=== PATIENT | female | born 1955 | race Caucasian/White ===

== ENCOUNTER 2016-08-21 06:49 | Emergency (ER) | payer MEDICAID ==
[~2016-08-21] VITALS: Ht 162.6 cm; Wt 38.9 kg
[2016-08-21 06:58] VITALS: BP 122/82
[2016-08-21] MEDS ORDERED: BACITRACIN ZINC OINT 500U/GM, 0.9 GM ONE ×2 (07:56→08:25)
== END 2016-08-21 08:39 | disposition home or self-care (01) ==
LOC: ED 08:11
DX: S00.81XA Abrasion of other part of head, initial encounter (principal); F23 Brief psychotic disorder; F31.9 Bipolar disorder, unspecified; J44.9 Chronic obstructive pulmonary disease, unspecified; X58.XXXA Exposure to other specified factors, initial encounter; Y93.89 Activity, other specified; Y92.89 Other specified places as the place of occurrence of the external cause; Y99.8 Other external cause status
CPT/HCPCS: 99281

== ENCOUNTER 2016-08-27 07:54 | Emergency (ER) | payer MEDICAID ==
[~2016-08-27] VITALS: Ht 165.1 cm; Wt 38.1 kg
[2016-08-27 07:56] VITALS: BP 120/70
[2016-08-27] MEDS ORDERED: SODIUM CHLORIDE FLUSH 10ML SYR IVF ONE (09:00)
[2016-08-27] MEDS ORDERED: SODIUM CHLORIDE 0.9% 1,000ML IVBOLUS ONE (09:00)
== END 2016-08-27 09:27 | disposition home or self-care (01) ==
LOC: ED 08:19
DX: R21 Rash and other nonspecific skin eruption (principal); J44.9 Chronic obstructive pulmonary disease, unspecified
CPT/HCPCS: 99281

== ENCOUNTER 2016-09-06 07:11 | Emergency (ER) | payer MEDICAID ==
[~2016-09-06] VITALS: Ht 165.1 cm; Wt 38.8 kg
[2016-09-06 07:17] VITALS: BP 114/72
== END 2016-09-06 08:21 | disposition left against medical advice (07) ==
LOC: ED 08:15
DX: L98.8 Other specified disorders of the skin and subcutaneous tissue (principal)

== ENCOUNTER 2016-09-23 06:08 | Emergency (ER) | payer MEDICAID ==
[~2016-09-23] VITALS: Ht 162.6 cm; Wt 38.2 kg
[2016-09-23 07:51] VITALS: BP 125/77
== END 2016-09-23 07:53 | disposition home or self-care (01) ==
LOC: ED 07:25
DX: L57.0 Actinic keratosis (principal); G89.29 Other chronic pain; M41.9 Scoliosis, unspecified; M54.9 Dorsalgia, unspecified
CPT/HCPCS: 99281

== ENCOUNTER 2016-11-05 07:50 | Emergency (ER) | payer MEDICAID ==
[~2016-11-05] VITALS: Ht 152.4 cm; Wt 37.5 kg
[2016-11-05 08:04] VITALS: BP 121/79
== END 2016-11-05 09:46 | disposition left against medical advice (07) ==
LOC: ED 09:40
DX: Z53.21 Procedure and treatment not carried out due to patient leaving prior to being seen by health care provider (principal)

== ENCOUNTER 2017-02-02 19:37 | Emergency (ER) | payer MEDICAID ==
[~2017-02-02] VITALS: Ht 165.1 cm; Wt 40.1 kg
[2017-02-02 19:39] VITALS: BP 134/83
[2017-02-02] MEDS ORDERED: PRED20TA PO (20:12)
[2017-02-02] MEDS ORDERED: AZIT500T5 PO (20:12)
[2017-02-02] MEDS ORDERED: ALBU18HF INH (20:12)
== END 2017-02-02 20:26 | disposition home or self-care (01) ==
LOC: ED 20:15
DX: J20.9 Acute bronchitis, unspecified (principal); J44.9 Chronic obstructive pulmonary disease, unspecified; Z88.0 Allergy status to penicillin
CPT/HCPCS: 99283

== ENCOUNTER 2017-02-08 22:19 | Emergency (ER) | payer MEDICAID ==
[~2017-02-08] VITALS: Ht 152.4 cm; Wt 42.0 kg
[~2017-02-08 22:19] MED LIST: ALBU18HF INH; AZIT500T5 PO; PRED20TA PO
[2017-02-08 22:20] VITALS: BP 130/81
[2017-02-08] MEDS ORDERED: KETOROLAC 30 MG/1 ML IM ONE (23:30)
[2017-02-08] MEDS ORDERED: KETOROLAC 30 MG/1 ML ONE (23:40)
== END 2017-02-08 23:49 | disposition home or self-care (01) ==
LOC: ED 23:29
DX: M54.5 Low back pain (principal); M54.6 Pain in thoracic spine; J44.9 Chronic obstructive pulmonary disease, unspecified; G89.29 Other chronic pain; M54.9 Dorsalgia, unspecified
CPT/HCPCS: 71020; 99284

== ENCOUNTER 2017-02-09 17:44 | Emergency (ER) | payer MEDICAID ==
[~2017-02-09] VITALS: Ht 165.1 cm; Wt 41.0 kg
[2017-02-09] MEDS ORDERED: ACETAMINOPHEN 325 MG TABLET PO ONE (18:30)
[2017-02-09] MEDS ORDERED: PLEASE ENTER HEIGHT AND WEIGHT MC SCH (18:30)
[2017-02-09] MEDS ORDERED: ACETAMINOPHEN 325 MG TABLET ONE (18:35)
[2017-02-09 19:07] VITALS: BP 126/79
== END 2017-02-09 20:18 | disposition home or self-care (01) ==
LOC: ED 19:20
DX: J15.9 Unspecified bacterial pneumonia (principal); J44.0 Chronic obstructive pulmonary disease with (acute) lower respiratory infection
CPT/HCPCS: 71020; 93005; 99284

== ENCOUNTER 2017-02-10 05:01 | Emergency (ER) | payer MEDICAID ==
[~2017-02-10] VITALS: Ht 165.1 cm; Wt 40.0 kg
[2017-02-10] MEDS ORDERED: MECLIZINE CHEWABLE 25 MG TAB PO ONE (05:30)
[2017-02-10] MEDS ORDERED: MECLIZINE CHEWABLE 25 MG TAB ONE (05:55)
[2017-02-10 06:06] LABS: BLOOD UREA NITROGEN 9 mg/dL (7-18)
[2017-02-10 06:13] LABS: IS PT STATUS REG ER OR PRE ER? YES
[2017-02-10 06:19] LABS: HEMATOCRIT 44.6 % (34.6-47.8); HEMOGLOBIN 14.9 g/dL (11.7-16.4); WHITE BLOOD COUNT 16.2 x10^3/uL (3.4-10)
[2017-02-10 09:07] VITALS: BP 118/70
== END 2017-02-10 09:09 | disposition home or self-care (01) ==
LOC: ED 05:35
DX: R42 Dizziness and giddiness (principal); J44.9 Chronic obstructive pulmonary disease, unspecified; Z59.0 Homelessness; F17.200 Nicotine dependence, unspecified, uncomplicated; M41.9 Scoliosis, unspecified
CPT/HCPCS: 36415; 70450; 80048; 81003; 82040; 84484; 85025; 93005; 99285

== ENCOUNTER 2017-08-18 23:44 | Emergency (ER) | payer MEDICAID ==
[~2017-08-18] VITALS: Ht 165.1 cm; Wt 44.2 kg
[2017-08-18 23:49] VITALS: BP 142/87
[2017-08-19] MEDS ORDERED: METHOCARBAMOL 750 MG TABLET PO ONE (00:30)
[2017-08-19] MEDS ORDERED: KETOROLAC 30 MG/1 ML IM ONE (00:30)
[2017-08-19] MEDS ORDERED: METHOCARBAMOL 750 MG TABLET ONE (00:47)
[2017-08-19] MEDS ORDERED: KETOROLAC 30 MG/1 ML ONE (00:47)
== END 2017-08-19 02:14 | disposition home or self-care (01) ==
LOC: ED 23:59
DX: M41.116 Juvenile idiopathic scoliosis, lumbar region (principal); M41.114 Juvenile idiopathic scoliosis, thoracic region; R05 Cough; J44.9 Chronic obstructive pulmonary disease, unspecified; F17.200 Nicotine dependence, unspecified, uncomplicated; Z88.0 Allergy status to penicillin
CPT/HCPCS: 71046; 99284

== ENCOUNTER 2018-02-08 13:25 | Emergency (ER) | payer MEDICAID ==
[~2018-02-08] VITALS: Ht 157.5 cm; Wt 49.4 kg
[2018-02-08 13:25] VITALS: BP 115/72
== END 2018-02-08 14:24 | disposition home or self-care (01) ==
LOC: ED 14:17
DX: L84 Corns and callosities (principal); M54.9 Dorsalgia, unspecified; G89.29 Other chronic pain; F17.200 Nicotine dependence, unspecified, uncomplicated
CPT/HCPCS: 99281

== ENCOUNTER 2019-04-07 20:43 | Emergency (ER) | payer SELFPAY ==
[~2019-04-07] VITALS: Ht 165.1 cm; Wt 45.4 kg
[~2019-04-07 20:43] MED LIST changes: +AZIT500T10 PO; -AZIT500T5 PO
[2019-04-07 20:49] VITALS: BP 118/59
== END 2019-04-07 22:15 ==
LOC: ED 21:20
DX: B86 Scabies (principal); F17.210 Nicotine dependence, cigarettes, uncomplicated; Z72.9 Problem related to lifestyle, unspecified
CPT/HCPCS: 99283

== ENCOUNTER 2019-04-11 19:53 | Emergency (ER) | payer MEDICAID ==
[~2019-04-11] VITALS: Ht 165.1 cm; Wt 45.8 kg
[2019-04-11 19:59] VITALS: BP 125/86
== END 2019-04-11 21:52 | disposition home or self-care (01) ==
LOC: ED 21:46
DX: L24.9 Irritant contact dermatitis, unspecified cause (principal); B86 Scabies; J44.9 Chronic obstructive pulmonary disease, unspecified; F17.210 Nicotine dependence, cigarettes, uncomplicated
CPT/HCPCS: 99283

== ENCOUNTER → 2019-04-14 | Emergency (ER) | payer MEDICAID ==
[~2019-04-14] VITALS: Ht 165.1 cm; Wt 50.0 kg
[2019-04-14 21:22] VITALS: BP 172/96
== END ==
LOC: ED 21:50
DX: B86 Scabies (principal); J44.9 Chronic obstructive pulmonary disease, unspecified; F17.210 Nicotine dependence, cigarettes, uncomplicated
CPT/HCPCS: 99283

== ENCOUNTER 2019-05-17 14:30 | Emergency (ER) | payer MEDICAID ==
[~2019-05-17] VITALS: Ht 152.4 cm; Wt 45.2 kg
[2019-05-17 14:46] VITALS: BP 116/78
== END 2019-05-17 15:33 | disposition home or self-care (01) ==
LOC: ED 15:27
DX: S50.861A Insect bite (nonvenomous) of right forearm, initial encounter (principal); S60.862A Insect bite (nonvenomous) of left wrist, initial encounter; S60.861A Insect bite (nonvenomous) of right wrist, initial encounter; S60.562A Insect bite (nonvenomous) of left hand, initial encounter; S60.561A Insect bite (nonvenomous) of right hand, initial encounter; S50.862A Insect bite (nonvenomous) of left forearm, initial encounter; J44.9 Chronic obstructive pulmonary disease, unspecified; F17.200 Nicotine dependence, unspecified, uncomplicated; W57.XXXA Bitten or stung by nonvenomous insect and other nonvenomous arthropods, initial encounter; Y93.89 Activity, other specified; Y92.89 Other specified places as the place of occurrence of the external cause; Y99.8 Other external cause status
CPT/HCPCS: 99281

== ENCOUNTER 2019-05-29 19:40 | Emergency (ER) | payer MEDICAID ==
[~2019-05-29] VITALS: Ht 165.1 cm; Wt 45.0 kg
[2019-05-29 19:48] VITALS: BP 141/84
[2019-05-29] MEDS ORDERED: PERMETHRIN CRM 5%, 60GM ONE (19:55)
[2019-05-29] MEDS ORDERED: hydrOXyzine 50MG TABLET ONE (19:55)
[2019-05-29] MEDS ORDERED: PERMETHRIN CRM 5%, 60GM TP ONE (20:00)
[2019-05-29] MEDS ORDERED: hydrOXyzine 50MG TABLET PO ONE (20:00)
--- NOTE | 2019-05-29 20:03 | NUR ---
pt seen by pa and discharged from [facility]
== END 2019-05-29 20:05 | disposition home or self-care (01) ==
LOC: ED 19:52
DX: B86 Scabies (principal); W57.XXXA Bitten or stung by nonvenomous insect and other nonvenomous arthropods, initial encounter; J44.9 Chronic obstructive pulmonary disease, unspecified; F17.200 Nicotine dependence, unspecified, uncomplicated; Y93.89 Activity, other specified; Y92.89 Other specified places as the place of occurrence of the external cause; Y99.8 Other external cause status
CPT/HCPCS: 99283

== ENCOUNTER 2019-05-31 09:19 | Emergency (ER) | payer MEDICAID ==
[~2019-05-31] VITALS: Ht 157.5 cm; Wt 44.8 kg
[2019-05-31 09:27] VITALS: BP 134/74
--- NOTE | 2019-05-31 09:44 | NUR ---
Patient given discharge instructions and they have confirmed that they understand the instructions. Patient ambulatory with steady gait. Pt left with d/c paperwork, bus pass, and all personal belongings. NADN. No needs expressed.
== END 2019-05-31 09:59 | disposition home or self-care (01) ==
LOC: ED 09:26
DX: T14.8XXA Other injury of unspecified body region, initial encounter (principal); G89.29 Other chronic pain; J44.9 Chronic obstructive pulmonary disease, unspecified; W57.XXXA Bitten or stung by nonvenomous insect and other nonvenomous arthropods, initial encounter; Y93.89 Activity, other specified; Y92.009 Unspecified place in unspecified non-institutional (private) residence as the place of occurrence of the external cause; Y99.8 Other external cause status
CPT/HCPCS: 99283

== ENCOUNTER 2019-06-02 14:32 | Emergency (ER) | payer MEDICAID ==
[~2019-06-02] VITALS: Ht 165.1 cm; Wt 45.0 kg
[2019-06-02 14:35] VITALS: BP 124/78
--- NOTE | 2019-06-02 14:59 | NUR ---
PT D/C WITH D/C SUMMARY AND SCRIPTS. ALL QUESTIONS ANSWERED. PT AMBULATES WITH STEADY GAIT FOR D/C HOME. PT DENIES ANY OTHER NEEDS PERTAINING TO THIS VISIT AND PROVIDED BUS PAST PER PT REQUEST.
== END 2019-06-02 15:02 | disposition home or self-care (01) ==
LOC: ED 14:55
DX: B86 Scabies (principal); J44.9 Chronic obstructive pulmonary disease, unspecified; F17.210 Nicotine dependence, cigarettes, uncomplicated; Z72.9 Problem related to lifestyle, unspecified
CPT/HCPCS: 99282

== ENCOUNTER 2019-06-07 17:44 | Emergency (ER) | payer MEDICAID ==
[~2019-06-07] VITALS: Ht 165.1 cm; Wt 39.0 kg
[2019-06-07 17:54] VITALS: BP 110/68
== END 2019-06-07 19:45 | disposition home or self-care (01) ==
LOC: ED 18:47
DX: B86 Scabies (principal); L29.9 Pruritus, unspecified; J44.9 Chronic obstructive pulmonary disease, unspecified
CPT/HCPCS: 99283

== ENCOUNTER 2019-11-17 10:32 | Inpatient (IN) | payer MEDICAID ==
[~2019-11-17] VITALS: Ht 165.1 cm; Wt 37.0 kg
[2019-11-17] MEDS ORDERED: HYDROmorphone 1 MG/ML, 1ML INJ ONE ×2 (11:37→20:36)
[2019-11-17] MEDS ORDERED: SODIUM CHLORIDE FLUSH 10ML SYR IVF ONE (12:00)
[2019-11-17] MEDS ORDERED: HYDROmorphone 1 MG/ML, 1ML INJ IVPush PRN ×2 (12:00→20:00)
[2019-11-17 13:29] LABS: MEAN CORPUSCULAR HEMOGLOBIN 31.9 pg (27.0-34.8); MEAN CORPUSCULAR HGB CONC 32.7 g/dL (32.4-35.8); MEAN PLATELET VOLUME 7.3 fL (7.4-10.4); PLATELET COUNT 247 x10^3/uL (130-400); RED BLOOD COUNT 4.27 x10^6/uL (3.82-5.3); RED CELL DISTRIBUTION WIDTH 14.6 % (9.6-15.2)
[2019-11-17 13:39] LABS: ANION GAP 7 mmol/L (5-15); CALCIUM 8.9 mg/dL (8.5-10.1); CHLORIDE 109 mmol/L (98-107); CREATININE 0.71 mg/dL (0.55-1.02)
[2019-11-17 14:11] LABS: BASOPHILS # (AUTO) 0.02 x10^3/uL (0-0.1); BASOPHILS % (AUTO) 0 % (0-1); EOSINOPHILS # (AUTO) 0.09 x10^3/uL (0-0.4); EOSINOPHILS % (AUTO) 1 % (1-7); LYMPHOCYTES # (AUTO) 1.14 x10^3/uL (1-3.4); LYMPHOCYTES % (AUTO) 6 % (22-44); MD SCAN; MONOCYTES # (AUTO) 0.54 x10^3/uL (0.2-0.8); MONOCYTES % (AUTO) 3 % (2-9); NEUTROPHILS # (AUTO) 16.43 x10^3/uL (1.8-6.8); NEUTROPHILS % (AUTO) 90 % (42-75)
[2019-11-17] MEDS ORDERED: KETOROLAC 30 MG/1 ML IV PRN ×2 (14:30→19:18)
[2019-11-17] MEDS ORDERED: morphine SULFATE 10 MG/ML, 1ML IVPush PRN (14:30)
[2019-11-17] MEDS ORDERED: ACETAMINOPHEN 325 MG TABLET PO PRN ×2 (14:30→20:00)
[2019-11-17] MEDS ORDERED: POLYETHYLENE GLYCOL 17 GM PACKET PO PRN (14:30)
[2019-11-17] MEDS ORDERED: ONDANSETRON ODT 4 MG PO PRN (14:30)
[2019-11-17] MEDS ORDERED: ONDANSETRON 2MG/ML, 2ML IVPush PRN ×2 (14:30→20:00)
[2019-11-17] MEDS ORDERED: KETOROLAC 30 MG/1 ML ONE (15:42)
[2019-11-17] MEDS ORDERED: HALOPERIDOL 1 MG TABLET PO PRN (16:30)
[2019-11-17] MEDS ORDERED: LORazepam 2 MG/ML, 1ML IVPush PRN ×2 (16:30→20:00)
[2019-11-17] MEDS ORDERED: FENTANYL PF 250 MCG/5ML ONE (19:12)
[2019-11-17] MEDS ORDERED: LIDOCAINE PF 2%, 5ML ONE (19:17)
[2019-11-17] MEDS ORDERED: MIDAZOLAM 1 MG/ML, 2ML ONE (19:20)
[2019-11-17] MEDS ORDERED: ROCURONIUM 10MG/ML,5ML ONE (20:00)
[2019-11-17] MEDS ORDERED: PROMETHAZINE 25 MG SUPP PR PRN (20:00)
[2019-11-17] MEDS ORDERED: hydrALAzine 20 MG/ML, 1ML IV PRN (20:00)
[2019-11-17] MEDS ORDERED: PROMETHAZINE 25 MG/ML, 1ML IVPush PRN (20:00)
[2019-11-17] MEDS ORDERED: NEOSTIGMINE 1 MG/ML, 10ML ONE (20:00)
[2019-11-17] MEDS ORDERED: LABETALOL 5MG/ML, 20ML IV PRN (20:00)
[2019-11-17] MEDS ORDERED: OXYcodone 5 MG/5 ML ORAL.SOL UDC PO PRN (20:00)
[2019-11-17] MEDS ORDERED: PROPOFOL 10 MG/ML, 20ML ONE (20:00)
[2019-11-17] MEDS ORDERED: SUCCINYLCHOLINE 20 MG/ML, 10ML ONE (20:00)
[2019-11-17] MEDS ORDERED: DEXAMETHASONE 4 MG/ML, 1ML ONE (20:00)
[2019-11-17] MEDS ORDERED: CEFAZOLIN 1,000 MG ONE (20:00)
[2019-11-17] MEDS ORDERED: ONDANSETRON 2MG/ML, 2ML ONE (20:00)
[2019-11-17] MEDS ORDERED: GLYCOPYRROLATE 0.2MG/1ML, 5ML ONE (20:00)
[2019-11-17] MEDS ORDERED: OXYcodone 5 MG/5 ML ORAL.SOL UDC ONE (20:36)
[2019-11-17] MEDS ORDERED: FENTANYL PF 100 MCG/2ML ONE (20:36)
[2019-11-17] MEDS: FENTANYL PF 100 MCG/2ML IV PRN ×2 (20:44→20:49)
[2019-11-17] MEDS ORDERED: HALOPERIDOL 2 MG TABLET PO PRN (22:00)
[2019-11-18 02:50] VITALS: BP 134/75
[2019-11-18] MEDS: CEFAZOLIN PMX 1GM/50ML 50 ML IVPB SCH ×2 (03:20→11:21)
[2019-11-18] MEDS: OXYcodone IR 5MG TABLET PO PRN ×5 (03:37→22:07)
[2019-11-18 04:22] LABS: AMPHETAMINE SCREEN, URINE Negative (Negative); BARBITURATE SCREEN, URINE Negative (Negative); BENZODIAZEPINE SCREEN, URINE Positive (Negative); CANNABINOID SCREEN, URINE Negative (Negative); COCAINE SCREEN, URINE Negative (Negative); OPIATE SCREEN, URINE Negative (Negative)
[2019-11-18 04:23] LABS: METHADONE SCREEN, URINE Negative (Negative)
[2019-11-18 05:33] LABS: BASOPHILS # (AUTO) 0.14 x10^3/uL (0-0.1); BASOPHILS % (AUTO) 1 % (0-1); EOSINOPHILS # (AUTO) 0.03 x10^3/uL (0-0.4); EOSINOPHILS % (AUTO) 0 % (1-7); LYMPHOCYTES # (AUTO) 1.25 x10^3/uL (1-3.4); LYMPHOCYTES % (AUTO) 12 % (22-44); MD NO; MEAN CORPUSCULAR HEMOGLOBIN 31.4 pg (27.0-34.8); MEAN CORPUSCULAR HGB CONC 32.3 g/dL (32.4-35.8); MEAN PLATELET VOLUME 7.8 fL (7.4-10.4); MONOCYTES # (AUTO) 0.74 x10^3/uL (0.2-0.8); MONOCYTES % (AUTO) 7 % (2-9); NEUTROPHILS # (AUTO) 7.94 x10^3/uL (1.8-6.8); NEUTROPHILS % (AUTO) 79 % (42-75); PLATELET COUNT 213 x10^3/uL (130-400); RED BLOOD COUNT 4.25 x10^6/uL (3.82-5.3); RED CELL DISTRIBUTION WIDTH 14.5 % (9.6-15.2)
[2019-11-18 05:35] LABS: ALBUMIN 3.2 g/dL (3.4-5.0); ANION GAP 6 mmol/L (5-15); CALCIUM 9.2 mg/dL (8.5-10.1); CHLORIDE 108 mmol/L (98-107)
[2019-11-18 05:39] LABS: ALANINE AMINOTRANSFERASE 18 U/L (12-78); ALKALINE PHOSPHATASE 58 U/L (45-117); BILIRUBIN,TOTAL 0.5 mg/dL (0.2-1.0); CREATININE 0.81 mg/dL (0.55-1.02)
[2019-11-18] MEDS: ENOXAPARIN 40 MG/0.4 ML SQ SCH (05:43)
[2019-11-18 07:14] VITALS: BP 132/77
[2019-11-18] MEDS ORDERED: PERMETHRIN CRM 5%, 60GM TP SCH (09:00)
[2019-11-18] MEDS: SENNA/DOCUSATE TABLET PO SCH (09:00)
[2019-11-18] MEDS: NICOTINE 21 MG/24 HR PATCH.TD24 TD SCH (09:00)
[2019-11-18 11:54] VITALS: BP 137/70
[2019-11-18 14:50] VITALS: BP 139/85
[2019-11-18 22:00] VITALS: BP 134/81
[2019-11-19] MEDS: OXYcodone IR 5MG TABLET PO PRN ×3 (05:49→20:55)
[2019-11-19] MEDS: ENOXAPARIN 40 MG/0.4 ML SQ SCH (05:49)
[2019-11-19] MEDS: CHOLECALCIFEROL 5,000u TAB PO SCH (09:00)
[2019-11-19] MEDS: SENNA/DOCUSATE TABLET PO SCH (09:00)
[2019-11-19] MEDS: NICOTINE 21 MG/24 HR PATCH.TD24 TD SCH (09:00)
[2019-11-19 19:52] VITALS: BP 0/0
[2019-11-20 02:34] VITALS: BP 0/0
[2019-11-20] MEDS: ENOXAPARIN 40 MG/0.4 ML SQ SCH (06:00)
[2019-11-20] MEDS: CHOLECALCIFEROL 5,000u TAB PO SCH (08:30)
[2019-11-20] MEDS: SENNA/DOCUSATE TABLET PO SCH (08:30)
[2019-11-20] MEDS: NICOTINE 21 MG/24 HR PATCH.TD24 TD SCH (08:30)
[2019-11-20] MEDS: OXYcodone IR 5MG TABLET PO PRN ×2 (14:32→20:59)
[2019-11-20 21:03] VITALS: BP 0/0
[2019-11-21 00:59] VITALS: BP 0/0
[2019-11-21] MEDS: OXYcodone IR 5MG TABLET PO PRN ×3 (03:54→20:15)
[2019-11-21] MEDS: ENOXAPARIN 40 MG/0.4 ML SQ SCH (06:00)
[2019-11-21] MEDS: NICOTINE 21 MG/24 HR PATCH.TD24 TD SCH (09:17)
[2019-11-21] MEDS: CHOLECALCIFEROL 5,000u TAB PO SCH (09:17)
[2019-11-21] MEDS: SENNA/DOCUSATE TABLET PO SCH (09:17)
[2019-11-21 19:10] VITALS: BP 0/0
[2019-11-22 00:02] VITALS: BP 0/0
[2019-11-22] MEDS: ENOXAPARIN 40 MG/0.4 ML SQ SCH (05:16)
[2019-11-22] MEDS: OXYcodone IR 5MG TABLET PO PRN (06:47)
[2019-11-22 07:22] VITALS: BP 0/0
[2019-11-22] MEDS: NICOTINE 21 MG/24 HR PATCH.TD24 TD SCH (09:00)
[2019-11-22] MEDS: SENNA/DOCUSATE TABLET PO SCH (09:00)
[2019-11-22] MEDS: CHOLECALCIFEROL 5,000u TAB PO SCH (09:00)
[2019-11-22] MEDS ORDERED: OXYcodone IR 5MG TABLET PO PRN (10:00)
[2019-11-22 13:09] VITALS: BP 0/0
[2019-11-22 19:03] VITALS: BP 0/0
[2019-11-23 00:43] VITALS: BP 0/0
[2019-11-23] MEDS: ENOXAPARIN 40 MG/0.4 ML SQ SCH (05:39)
[2019-11-23] MEDS: CHOLECALCIFEROL 5,000u TAB PO SCH (09:53)
[2019-11-23] MEDS: SENNA/DOCUSATE TABLET PO SCH (09:53)
[2019-11-23] MEDS: NICOTINE 21 MG/24 HR PATCH.TD24 TD SCH (09:53)
[2019-11-23 20:22] VITALS: BP 0/0
[2019-11-24 00:53] VITALS: BP 0/0
[2019-11-24] MEDS: ENOXAPARIN 40 MG/0.4 ML SQ SCH (04:44)
[2019-11-24] MEDS: SENNA/DOCUSATE TABLET PO SCH (09:00)
[2019-11-24] MEDS: CHOLECALCIFEROL 5,000u TAB PO SCH (09:00)
[2019-11-24] MEDS: NICOTINE 21 MG/24 HR PATCH.TD24 TD SCH (09:00)
[2019-11-25] MEDS: ENOXAPARIN 40 MG/0.4 ML SQ SCH (05:28)
[2019-11-25] MEDS: CHOLECALCIFEROL 5,000u TAB PO SCH (08:34)
[2019-11-25] MEDS: NICOTINE 21 MG/24 HR PATCH.TD24 TD SCH (08:34)
[2019-11-25] MEDS: SENNA/DOCUSATE TABLET PO SCH (08:34)
[2019-11-26 01:44] VITALS: BP 101/54
[2019-11-26] MEDS: ENOXAPARIN 40 MG/0.4 ML SQ SCH (05:04)
[2019-11-26 07:05] VITALS: BP 97/53
[2019-11-26] MEDS: CHOLECALCIFEROL 5,000u TAB PO SCH (08:55)
[2019-11-26] MEDS: NICOTINE 21 MG/24 HR PATCH.TD24 TD SCH (08:55)
[2019-11-26] MEDS: SENNA/DOCUSATE TABLET PO SCH (08:55)
[2019-11-26 13:23] VITALS: BP 112/68
[2019-11-26 19:45] VITALS: BP 108/59
[2019-11-27 01:40] VITALS: BP 101/48
[2019-11-27 05:19] LABS: CREATININE 0.63 mg/dL (0.55-1.02)
[2019-11-27] MEDS: ENOXAPARIN 40 MG/0.4 ML SQ SCH (06:00)
[2019-11-27 07:57] VITALS: BP 122/58
[2019-11-27] MEDS: NICOTINE 21 MG/24 HR PATCH.TD24 TD SCH (09:00)
[2019-11-27] MEDS: SENNA/DOCUSATE TABLET PO SCH (09:00)
[2019-11-27] MEDS: CHOLECALCIFEROL 5,000u TAB PO SCH (09:00)
[2019-11-27 13:58] VITALS: BP 104/56
[2019-11-27 19:36] VITALS: BP 112/62
[2019-11-28 02:48] VITALS: BP 107/61
[2019-11-28] MEDS: ENOXAPARIN 40 MG/0.4 ML SQ SCH (06:00)
[2019-11-28 07:20] VITALS: BP 102/62
[2019-11-28] MEDS: CHOLECALCIFEROL 5,000u TAB PO SCH (09:20)
[2019-11-28] MEDS: SENNA/DOCUSATE TABLET PO SCH (09:20)
[2019-11-28] MEDS: NICOTINE 21 MG/24 HR PATCH.TD24 TD SCH (09:20)
[2019-11-28 12:18] VITALS: BP 102/65
[2019-11-28 19:48] VITALS: BP 118/61
[2019-11-29] MEDS: ENOXAPARIN 40 MG/0.4 ML SQ SCH (06:00)
== END 2019-11-29 07:22 | disposition left against medical advice (07) | DRG 480 ==
LOC: ED 12:41 → EDIP 13:30 → 4NE 21:45
PROVIDERS: ADMIT Internal Medicine; ATTEND Hospitalist
PROC: 0QS704Z Reposition Left Upper Femur with Internal Fixation Device, Open Approach (ICD-10-PCS; principal; 2019-11-17 16:30)
DX: S72.045A Nondisplaced fracture of base of neck of left femur, initial encounter for closed fracture (principal); E43 Unspecified severe protein-calorie malnutrition; R64 Cachexia; F20.0 Paranoid schizophrenia; Z68.1 Body mass index [BMI] 19.9 or less, adult; D72.829 Elevated white blood cell count, unspecified; E55.9 Vitamin D deficiency, unspecified; F17.210 Nicotine dependence, cigarettes, uncomplicated; J44.9 Chronic obstructive pulmonary disease, unspecified; L30.9 Dermatitis, unspecified; Z59.0 Homelessness; G89.29 Other chronic pain; M54.9 Dorsalgia, unspecified; Z88.0 Allergy status to penicillin; W03.XXXA Other fall on same level due to collision with another person, initial encounter; Y93.89 Activity, other specified; Y92.89 Other specified places as the place of occurrence of the external cause; Y99.0 Civilian activity done for income or pay; Z20.828 Contact with and (suspected) exposure to other viral communicable diseases
CPT/HCPCS: 36415; 72192; 76000; 80048; 80053; 80307; 82306; 82565; 83735; 84100; 85025; 87635; 93005; 96374; C1713; G0378; J0690; J1100; J1170; J1650; J1885; J2250; J2405; J2704; J2710; J3010; Q0162; J0330

== ENCOUNTER 2019-12-06 09:52 | Emergency (ER) | payer MEDICAID ==
[~2019-12-06] VITALS: Ht 165.1 cm; Wt 37.2 kg
--- NOTE | 2019-12-06 11:42 | NUR ---
STERI STRIPS NOTED TO BE IN PLACE ON PT'S LEFT HIP.
--- NOTE | 2019-12-06 11:42 | NUR ---
PT C/O NEEDING LUCIAN REMOVED FROM HIP SURGICAL SITE. PT DENIES ANY OTHER COMPLAINT. PT DENIES PAIN.
[2019-12-06 11:43] VITALS: BP 111/53
--- NOTE | 2019-12-06 12:09 | NUR ---
PT REC'VD DISCHARGE INSTRUCTIONS AND EDUCATION. PT HAD NO QUESTIONS. PT AMBULATED TO DC DESK, STEADY GAIT.
== END 2019-12-06 12:12 | disposition home or self-care (01) ==
LOC: ED 10:41
DX: S71.012D Laceration without foreign body, left hip, subsequent encounter (principal); J44.9 Chronic obstructive pulmonary disease, unspecified; G89.29 Other chronic pain; X58.XXXD Exposure to other specified factors, subsequent encounter
CPT/HCPCS: 99281

== ENCOUNTER 2020-03-21 22:00 | Emergency (ER) | payer MEDICAID ==
[~2020-03-21] VITALS: Ht 162.6 cm; Wt 43.3 kg
[2020-03-21 22:02] VITALS: BP 137/69
--- NOTE | 2020-03-21 23:27 | NUR ---
PT GIVEN DISCHARGE INSTRUCTIONS AND EDUCATION. PT ALSO GIVEN CAB VOUCHER TO [facility] [place], [place].
== END 2020-03-21 23:29 | disposition home or self-care (01) ==
LOC: ED 23:20
DX: R05 Cough (principal); J44.9 Chronic obstructive pulmonary disease, unspecified; R06.02 Shortness of breath; Z59.0 Homelessness
CPT/HCPCS: 71045; 99283

== ENCOUNTER 2020-09-02 17:51 | Emergency (ER) | payer MEDICAID ==
[~2020-09-02] VITALS: Ht 165.1 cm; Wt 40.0 kg
--- NOTE | 2020-09-02 18:00 | NUR ---
REPORT RECEIVED FROM [facility]- THEY REPORT THAT [facility] CALLED THEM BECAUSE PT HAS BED BUGS. THEY REPORT THAT THERE ARE BLE BITES WHICH PT HAS BEEN PICKING AT AND LOOKS LIKE CELLULITIS IS PRESENT. PER [facility], PT IS DELUSIONAL AND THINKS THAT SHE IS A FAMOUS PERSON. PT DENIES DRUG AND ETOH. PT REFUSED VS FROM [facility] AND NO INTERVENTIONS BRICKLAYER PAVING BRICK. 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
--- NOTE | 2020-09-02 18:09 | NUR ---
HEATHER JACOBSON REPORTED PT NOT COOPERATIVE W/ SHOWERING BODY SHE IS COLD, TOLD HER TO ENCOURAGE PT QUICKER SHE IS QUICKER WE CAN WARM HER UP AND BRING WARM BLANKETS.
[2020-09-02 18:28] VITALS: BP 140/75
[2020-09-02] MEDS ORDERED: CEPHALEXIN 500 MG CAPSULE ONE (18:42)
[2020-09-02] MEDS ORDERED: SULFAMETH./TRIMETHOPRIM DS 800MG/160MG TABLET ONE (18:42)
--- NOTE | 2020-09-02 18:46 | NUR ---
PT MEDICATED PER [facility], CALL LIGHT W/IN REACH.
--- NOTE | 2020-09-02 18:54 | NUR ---
[facility] REPORT GIVEN TO GABY
--- NOTE | 2020-09-02 18:55 | NUR ---
Report from Denisse RODRIGUEZ
[2020-09-02] MEDS ORDERED: SULFAMETH./TRIMETHOPRIM DS 800MG/160MG TABLET PO ONE (19:00)
[2020-09-02] MEDS ORDERED: CEPHALEXIN 500 MG CAPSULE PO ONE (19:00)
[2020-09-02] MEDS ORDERED: BACITRACIN ZINC OINT 500U/GM, 0.9 GM ONE (19:28)
--- NOTE | 2020-09-02 19:40 | NUR ---
Pt wounds dressed with bacitracin and gauze, education provided about improtance of filling prescription at [facility] upon discharge. VSS, unhooked from monitors and given instructions for wound care.
--- NOTE | 2020-09-02 19:58 | NUR ---
Pt provided bedside comode. Registration said they will be in shortly so she doesn't have to wait at discharge with her belongings to prevent bug contamination. Pt provided bus pass for dc to [facility]
== END 2020-09-02 20:22 | disposition home or self-care (01) ==
LOC: ED 18:10
DX: S80.862A Insect bite (nonvenomous), left lower leg, initial encounter (principal); S80.861A Insect bite (nonvenomous), right lower leg, initial encounter; S20.369A Insect bite (nonvenomous) of unspecified front wall of thorax, initial encounter; S30.861A Insect bite (nonvenomous) of abdominal wall, initial encounter; L03.116 Cellulitis of left lower limb; L50.9 Urticaria, unspecified; F17.200 Nicotine dependence, unspecified, uncomplicated; J44.9 Chronic obstructive pulmonary disease, unspecified; G89.29 Other chronic pain; W57.XXXA Bitten or stung by nonvenomous insect and other nonvenomous arthropods, initial encounter; Y93.89 Activity, other specified; Y92.89 Other specified places as the place of occurrence of the external cause; Y99.8 Other external cause status
CPT/HCPCS: 99283